=== PATIENT | female | born 1950 | race Caucasian/White ===

== ENCOUNTER → 2018-05-28 | Outpatient (REF) | payer SELFPAY ==
[2018-05-28 14:04] LABS: PLATELET COUNT, AUTOMATED 379 10^3/uL (150-450)
[2018-05-28 14:13] LABS: INR 1.01; PROTHROMBIN TIME 13.4 SECONDS (12.1-14.4)
[2018-05-28 14:14] LABS: PARTIAL THROMBOPLASTIN TIME 31.4 SECONDS (25.4-37.6)
== END ==
LOC: M LABDRAW1 13:52
DX: Z01.812 Encounter for preprocedural laboratory examination (principal)

== ENCOUNTER → 2018-11-18 | Outpatient (CLI) | payer MEDICARE ==
[~2018-11-18] MED LIST: ACET-683 PO; ALLO10TA PO; BUDE180INH INH; CORE80CA PO; CYMB60CA3 PO; DICY1CAP8 PO; DICY20TA PO; DULO-34 PO; ENAL5TAB PO; FISH1CAP23 PO; FLUT50SP21; GABA-845 PO; INSUDET SC; INSUH10VL SC; INVO300T PO; KLOR20TA42 PO; LIAL1.2T PO; LIPI20TA PO; NEXI40GR PO; ONDA8TAB8 PO; OS-CTAB3 PO; PREG25CA PO; PREG50CA PO; REST0.05 OD; ROPI0.5T PO; SLOWTAB2 PO; SOMA350T PO; SPIR-10 PO; TIZA4CAP6 PO; TORS10TA3 PO; TORS20TA2 PO; TRAM50TA2 PO; VASO5TAB11 PO; VENTAER INH; ZYLO300T6 PO
[2018-11-18 11:11] LABS: HEMATOCRIT 37.8 % (36.0-47.0); HEMOGLOBIN 12.2 g/dl (12.0-15.5); MEAN CORPUSCULAR HEMOGLOBIN 28.1 pg (27.0-33.0); MEAN CORPUSCULAR HGB CONC 32.3 g/dl (32.0-36.5); MEAN CORPUSCULAR VOLUME 87.1 fl (80.0-96.0); PLATELET COUNT, AUTOMATED 315 10^3/uL (150-450); RED BLOOD COUNT 4.34 10^6/uL (4.00-5.40); WHITE BLOOD COUNT 9.4 10^3/uL (4.0-10.0)
[2018-11-18 11:25] LABS: INR 1.1; PROTHROMBIN TIME 14.3 SECONDS (12.1-14.4)
[2018-11-18 11:31] LABS: ERYTHROCYTE SEDIMENTATION RATE 69 mm/hr (0-30)
[2018-11-18 11:33] LABS: ALT/SGPT 21 U/L (12-78); BILIRUBIN,TOTAL 0.5 MG/DL (0.2-1.0); BLOOD UREA NITROGEN 17 MG/DL (7-18); CALCIUM LEVEL 8.6 MG/DL (8.8-10.2); CARBON DIOXIDE LEVEL 27 MEQ/L (21-32); CHLORIDE LEVEL 100 MEQ/L (98-107); CREATININE FOR GFR 0.96 MG/DL (0.55-1.30); GLOMERULAR FILTRATION RATE > 60.0 (>45); GLUCOSE, FASTING 146 MG/DL (70-100); POTASSIUM SERUM 4.2 MEQ/L (3.5-5.1); SODIUM LEVEL 133 MEQ/L (136-145); TOTAL PROTEIN 7.1 GM/DL (6.4-8.2)
--- NOTE | 2018-11-18 14:13 | REP ---
REASON: Preoperative testing. There are no priors for comparison. There is a dual-chamber bipolar pacemaker device, the leads of which appear contiguous and appropriate. The lungs are clear and the heart is not enlarged. The pleural angles are sharp. There is a kyphotic deformity involving the lower thoracic level difficult to evaluate on this plain film examination of the chest. IMPRESSION: No acute cardiopulmonary disease, however, findings as described above. Electronically Signed by Tomás Garcia DO 11/18/2018 03:41 P
--- NOTE | 2018-11-19 00:29 | ECGEPIP ---
Stationary ECG Study [facility] Test Date: 2018-11-18 Pat Name: HORACIO MCDOWELL Department: Room: - Gender: F Supervisor [place]: : 1950 Requested By: Dung Inman @ [facility] Order Number: [id number] Reading MD: Vladislav Du Measurements Intervals [place] Rate: 84 P: 67 AK: 220 QRS: 5 QRSD: 90 T: 45 QT: 350 QTc: 414 Interpretive Statements SINUS RHYTHM WITH FIRST DEGREE AV BLOCK LOW QRS VOLTAGE IN PRECORDIAL LEADS ARTIFACT NOTED ON THE BASELINE NO PRIOR TRACING Electronically Signed On 11-19-2018 0:28:48 EDT by Vladislav Du
== END ==
LOC: M LAB 10:15
PROVIDERS: ATTEND Orthopaedic Surgery
DX: Z01.812 Encounter for preprocedural laboratory examination (principal); M16.11 Unilateral primary osteoarthritis, right hip; I44.0 Atrioventricular block, first degree; Z95.0 Presence of cardiac pacemaker

== ENCOUNTER 2018-12-05 07:00 | Inpatient (IN) | payer MEDICARE ==
--- NOTE | 2018-12-01 09:55 | HPE ---
DATE OF ADMISSION: 12/05/2018 ATTENDING PHYSICIAN: Dr. Dung Inman CHIEF COMPLAINT: Right hip pain and stiffness. HISTORY: This is a pleasant 68-year-old female patient with progressively worsening right hip pain and stiffness that has failed to improve with conservative management. She has pain with weightbearing activities that affect her activities of daily living. She has elected for surgery for her continued symptoms and has consented for right total hip arthroplasty by Dr. Inman ALLERGIES: - CODEINE DERIVATIVES - MELOXICAM - METFORMIN - NEURONTIN - PANTOPRAZOLE - PHENOBARBITAL - PRILOSEC - SULFA - TIZANIDINE CURRENT MEDICATIONS: - allopurinol 300 mg one by mouth daily - aspirin 81 mg one by mouth daily - atorvastatin 40 mg one by mouth daily - propranolol 12.5 mg two by mouth twice a day - dicyclomine 10 mg two by mouth as needed - Vasotec 2.5 mg one by mouth daily - Nexium 40 mg one by mouth daily - fluticasone 58 mcg as needed - Lyrica 50 mg two by mouth twice a day - NovoLog sliding scale - Invokana 300 mg one by mouth daily - potassium 20 mg one by mouth daily - Zofran 4 mg as needed - Pulmicort 180 mcg - Restasis 1 drop per eye twice a day - ropinirole 1 mg one by mouth in the morning and two by mouth at bedtime - spironolactone 25 mg one by mouth daily - torsemide 20 mg one by mouth daily - tramadol 50 mg as needed - Ventolin inhaler 2 puffs as needed PAST MEDICAL HISTORY: 1. Heart failure. 2. Type 2 diabetes. 3. Asthma. 4. Osteoarthritis. 5. Spinal stenosis. 6. Fibromyalgia. 7. Gastroesophageal reflux disease. 8. Hiatal hernia. 9. Rhinitis. 10. Sleep apnea. 11. Colitis and irritable bowel syndrome. 12. Gouty arthritis. PAST SURGICAL HISTORY: 1. Appendectomy. 2. Hysterectomy. 3. Pacemaker/defibrillator. 4. Left total knee arthroplasty. 5. Carpal tunnel release. 6. Bilateral abdominal hernia repair. 7. Cataract surgery. FAMILY HISTORY: Father and mother , both congestive heart failure (CHF) and hypertension. SOCIAL HISTORY: Patient is a nonsmoker and does not use alcohol. REVIEW OF SYSTEMS: Denies fever, chills, chest pain, shortness of breath, nausea, vomiting, diarrhea. Reports pain and stiffness in the right hip. PHYSICAL EXAMINATION: Height 5 feet 2-1/2 inches, weight 205.8 pounds, temperature 98.2, blood pressure 112/62, pulse 62, and respirations 17. She is a normocephalic, atraumatic female who is well-nourished, well-developed. Neck is supple and nontender with no lymphadenopathy or jugular venous distention (JVD). S1 and S2 auscultated with no murmurs, rubs or gallops. Lungs were clear to auscultation bilaterally with no wheezes, rales or rhonchi. Abdomen: Soft, nontender. The right hip shows overlying skin which is intact with no erythema, ecchymosis or rashes. She has discomfort with range of motion. The right lower extremity is well perfused and neurovascular status is intact. Chest x-ray with no acute cardiopulmonary disease. EKG is sinus rhythm with first-degree AV block. LABORATORY DATA: White count 9.4, red count 4.34, hemoglobin 12.2, hematocrit 37.8, ESR 69, PT 14.3, INR 1.1, BUN 17, creatinine 0.96. PREOPERATIVE MEDICAL OPTIMIZATION: Completed by Dr. Ruano and reviewed today on chart. IMPRESSION: Symptomatic right hip osteoarthritis. PLAN: Consented for right total hip arthroplasty with Dr. Inman.
[~2018-12-05] VITALS: Ht 160 cm; Wt 95.3 kg
[2018-12-05] VITALS (8 sets, daily range): BP systolic 120–135; BP diastolic 63–73; O2SAT 96
[~2018-12-05 07:00] MED LIST changes: +LIDOCAINE 1% MDV 20ML VIAL SQ PRN; +LR 1,000 ML IV ONE
[2018-12-05] MEDS ORDERED: ECOT81TA5 PO (08:24)
[2018-12-05] MEDS ORDERED: PROPOFOL 200 MG/20 ML VIAL As Ordered ONE ×2 (08:45→08:46)
[2018-12-05] MEDS ORDERED: dexameTHASONE 4 MG/ML 1ML VIAL (J1100) As Ordered ONE (08:46)
[2018-12-05] MEDS ORDERED: LIDOCAINE 2% INJ 100 MG/5 ML SDV (FOR ANES.) As Ordered ONE (08:46)
[2018-12-05] MEDS ORDERED: fentaNYL 100 MCG/2 ML INJECTION (J3010) As Ordered ONE (08:46)
[2018-12-05] MEDS ORDERED: ONDANSETRON 4MG/2ML VIAL (J2405) As Ordered ONE (08:46)
[2018-12-05] MEDS ORDERED: MIDAZOLAM INJ 2 MG/2 ML VIAL (J2250) As Ordered ONE (08:47)
[2018-12-05] MEDS ORDERED: CALCIUM CHLORIDE 10% 1 GM/10 ML SYR As Ordered ONE (08:54)
[2018-12-05] MEDS: ALLOPURINOL 300 MG TAB PO SCH (09:00)
[2018-12-05] MEDS ORDERED: TRANEXAMIC ACID 100 MG/ML 10ML VIAL As Ordered ONE (09:38)
[2018-12-05] MEDS ORDERED: ceFAZolin 1GM INJ (J0690 PER 500MG) As Ordered ONE (09:39)
[2018-12-05] MEDS ORDERED: BUPIVACAINE LIPOSOME/PF 1.3% 20ML VIAL (13.3MG/ML)(EXPAREL)(C9290 PER1MG) As Ordered ONE (09:39)
[2018-12-05] MEDS ORDERED: EPINEPHrine INJ 1 MG/ML 1ML AMP As Ordered ONE (09:39)
--- NOTE | 2018-12-05 09:56 | IPN ---
DATE: 12/05/2018 The patient is seen and examined. She wished to go ahead with a right total hip arthroplasty. She does have significant obesity, which would make this more challenging. She understands that and riskier as well. She had a preop medical clearance. She wished to have a right total hip arthroplasty, and she is aware of the risks of bleeding, infection, damage to nerves, vessels, persistent pain, wear loosening, dislocation, leg length inequality, blood clots, medical problems, among others.
[2018-12-05] MEDS ORDERED: PHENYLephrine HCL 500 MCG/5 ML (100MCG/ML) SYRINGE (J2370) As Ordered ONE (10:57)
[2018-12-05] MEDS ORDERED: ePHEDrine SULFATE 25 MG/5 ML(5MG/ML) SYRINGE As Ordered ONE (10:57)
[2018-12-05] MEDS ORDERED: fentaNYL 100 MCG/2 ML INJECTION (J3010) IV PRN (12:30)
[2018-12-05] MEDS ORDERED: FLEET ENEMA PR PRN (12:30)
[2018-12-05] MEDS ORDERED: LR 1,000 ML IV SCH ×2 (12:30)
[2018-12-05] MEDS ORDERED: ACETAMINOPHEN TAB 650MG DOSE (2X325MG) PO PRN (12:30)
[2018-12-05] MEDS ORDERED: MORPHINE 4 MG/ML 1ML VIAL/SYRINGE (J2270) IV PRN (12:30)
[2018-12-05] MEDS ORDERED: MEPERIDINE INJ 25 MG/ML VIAL (J2175) IV PRN (12:30)
[2018-12-05] MEDS ORDERED: METOCLOPRAMIDE INJ 10MG/2ML VIAL (J2765) IV PRN (12:30)
[2018-12-05] MEDS ORDERED: ONDANSETRON 4MG/2ML VIAL (J2405) IV PRN (12:30)
[2018-12-05] MEDS ORDERED: PERCOCET 5MG/325MG TAB PO PRN (12:30)
--- NOTE | 2018-12-05 12:58 | REP ---
Clinical: Status post arthroplasty. Technique: Portable AP and cross-table lateral views. Findings: The patient is status post right hip replacement with normal positioning and appearance to the femoral and acetabular components. Overlying postsurgical changes appreciated. Impression: Satisfactory right hip replacement radiographs. Electronically Signed by Chidi Marc MD 12/05/2018 12:48 P
--- NOTE | 2018-12-05 14:18 | CR.PDOC ---
General Date of Consultation: December 05, 2018 Referring Provider: Bernardino Inman MD Consultation CHIEF COMPLAINT: R. hip pain HISTORY OF PRESENT ILLNESS: Patient is a 68 female with past medical history of severe osteoarthritis, diabetes mellitus, Asthma, cardiomyopathy status post pacemaker/defibrillator placement now has been turned off, spinal stenosis, fibromyalgia, GERD, IBS presented for right total hip arthroplasty due to worsening hip pain and stiffness that had failed on conservative treatment. She has had numerous surgeries in the past including total knee due to arthritis. She reports feeling fine post op except that she is now starting to feeling the pain in her R. hip, otherwise denies any other complaints. PAST MEDICAL HISTORY: Refer to HPI PAST SURGICAL HISTORY: Appendectomy Hysterectomy Pacemaker/defibrillator Left total knee arthroplasty Bilateral abdominal hernia repair Cataract surgery Right shoulder artery SOCIAL HISTORY: Denies tobacco, alcohol or illicit drug use. FAMILY HISTORY: Both parents with CHF and HTN ALLERGIES: Please see below. REVIEW OF SYSTEMS: 10 point review of system negative except as stated in HPI HOME MEDICATIONS: Please see below. PHYSICAL EXAMINATION: General: No acute distress, Alert Eyes: Normal sclera, EOMI, RAYMON HENT: Atraumatic, neck supple, moist mucous membranes Cardiovascular: Normal rate, normal rhythm. No murmurs appreciated. Pulmonary: Clear to auscultation b/l, no wheezing GI: Soft, nontender, nondistended MSK: R. hip tender to palpation, restricted ROM due to pain. Overlying bandage clean and dry. Skin: Warm and dry Neuro: CN grossly intact. No focal deficits. Strengths equal b/l. Psych: oriented x 3 LABORATORY DATA: See below. IMAGING: R. Hip XR MICROBIOLOGY: Please see below. ASSESSMENT AND PLAN: 1. R. hip pain s/p R. total hip arthroplasty - Performed 12/05/[address] Inman. - Pain management for Ortho. - Monitor wound/wound care. 2. hx CM w/ pacemaker - history of CM EF15% with pacemaker but had since improved now EF normal. - c/w home dose diuresis. - No evidence of fluid overload. 3. DM - Accuchecks, ISS. - resume home dose Levemir 35 units QHS, used to take 50 units. - Titrate as needed while inpatient. 4. Fibromyalgia/Spinal stenosis. - Resume home medications. 5. Asthma - Not in exacerbation. - Nebs PRN. monitor oxygen saturation. 6. GERD - Resume home meds. DVT ppx: Xarelto Vital Signs/I&O Vital Signs Date Time Temp Pulse Resp B/P (MAP) Pulse Ox O2 Delivery O2 Flow Rate FiO2 12/05/18 13:50 96.4 81 17 135/69 (91) 97 12/05/18 12:25 2 Laboratory Data Labs 24H Laboratory Tests 2 12/05/18 12:23: Bedside Glucose (Misc Panel) 117H CBC/BMP Laboratory Tests 12/05/18 07:21 Allergies Coded Allergies: [place] Extract (Verified Allergy, Unknown, 12/05/18) Sulfa (Sulfonamide Antibiotics) (Verified Allergy, Unknown, SWEATING, 11/06/18) TAPE (Verified Allergy, Unknown, PLASTIC TAPE, 08/07/05) codeine (Verified Allergy, Unknown, HEADACHE, 11/06/18) gabapentin (Verified Allergy, Unknown, 12/05/18) meloxicam (Verified Allergy, Unknown, HEART ARRHTYMIA, 11/06/18) mesalamine (Verified Allergy, Unknown, HEART PALPITATIONS, 11/06/18) metformin (Verified Allergy, Unknown, UNKNOWN, 11/06/18) omeprazole (Verified Allergy, Unknown, 12/05/18) pantoprazole (Verified Allergy, Unknown, 12/05/18) ragweed pollen (Verified Allergy, Unknown, 12/05/18) tizanidine (Verified Allergy, Unknown, 12/05/18) Home Medications Scheduled Acetaminophen (Acetaminophen) 500 Mg Tablet, 500 MG PO BID, (Reported) Allopurinol (Zyloprim) 300 Mg Tablet, 300 MG PO DAILY, (Reported) Aspirin (Ecotrin) 81 Mg Tablet.dr, 81 MG PO DAILY for pain for 30 Days, #30 (Reported) Atorvastatin Calcium (Lipitor) 20 Mg Tablet, 40 MG PO DAILY, (Reported) Budesonide (Pulmicort Flexhaler) 180 Mcg Aer.pow.ba, 2 PUFF INH BID for 30 Days, #1 (Reported) Calcium Carbonate/Vitamin D3 (Os-Zach 500-Vit D3 200 Caplet) 1 Each Tablet, 1 TAB PO BID, (Reported) Canagliflozin (Invokana) 300 Mg Tablet, 300 MG PO DAILY, (Reported) Carvedilol Phosphate (Coreg Cr) 80 Mg Cpmp.24hr, 80 MG PO DAILY, (Reported) Cyclosporine (Restasis) 0.05% Droperette, 1 DROP OD BID for 30 Days, #60 (Re ported) Duloxetine Hcl (Cymbalta) 60 Mg Capsule.dr, 60 MG PO DAILY, (Reported) Enalapril Maleate (Enalapril Maleate) 5 Mg Tablet, 2.5 MG PO DAILY, (Reported) Esomeprazole Magnesium (Nexium) 40 Mg Suspdr.pkt, 40 MG PO DAILY, (Reported) Fluticasone Propionate (Fluticasone Propionate) 15.8 Ml [place].susp, 2 SPRAYS NA DAILY, (Reported) Insulin Detemir (Levemir) 100 Unit/1 Ml Vial, 50 UNITS SC QHS, (Reported) Insulin Human Lispro (Novolog) 100 Unit/1 Ml Vial, 1 UNITS SC AC, (Reported) Magnesium Chloride (Slow-Mag) 71.5 Mg Tablet.dr, 2 TAB PO DAILY, (Reported) [place]-3/Dha/Epa/Fish Oil (Fish Oil 1,360 mg Softgel) 1 Each Capsule, 1 CAP PO DAILY, (Reported) Potassium Chloride (Klor-Con M20) 20 Meq Tab.er.prt, 20 MEQ PO DAILY, (Reported) Ropinirole HCl (Ropinirole HCl) 0.5 Mg Tablet, 0.5 MG PO QPM, (Reported) Spironolactone (Spironolactone) 25 Mg Tablet, 25 MG PO DAILY, (Reported) Torsemide (Torsemide) 10 Mg Tablet, 10 MG PO DAILY, (Reported) Scheduled PRN Albuterol Sulfate (Ventolin Hfa) 18 Gm Hfa.aer.ad, 2 PUFF INH Q4-6HP PRN for wheezing for 30 Days, #1 (Reported) Dicyclomine HCl (Dicyclomine HCl) 20 Mg Tablet, 20 MG PO QIDP PRN for BOWEL CA RE, (Reported) Ondansetron (Ondansetron Odt) 8 Mg Tab.rapdis, 8 MG PO Q8HP PRN for NAUSEA, (Reported) Pregabalin (Lyrica) 50 Mg Capsule, 50 MG PO QIDP PRN for PAIN, (Reported) Tizanidine HCl (Tizanidine HCl) 4 Mg Capsule, 4 MG PO TIDP PRN for MUSCLE SPASMS, (Reported) Tramadol HCl (Tramadol HCl) 50 Mg Tablet, 50 MG PO Q4-6HP PRN for PAIN, (Reported) JM AMEZCUA MD December 05, 2018 14:18
[2018-12-05] MEDS ORDERED: IPRATROPIUM 0.5MG/ALBUTEROL 2.5MG INH SOL UD 3ML (DUONEB)(J7620) NEB PRN (14:30)
[2018-12-05] MEDS ORDERED: DICYCLOMINE 10 MG CAP PO PRN (14:30)
[2018-12-05] MEDS ORDERED: GLUCOSE 4 GM CHEW TABLET PO PRN (14:30)
[2018-12-05] MEDS ORDERED: GLUCAGON FOR INJ 1 MG VIAL (J1610) SC PRN (14:30)
[2018-12-05] MEDS ORDERED: DEXTROSE 50% 50 ML SYRINGE IV PRN (14:30)
[2018-12-05] MEDS: PERCOCET 5MG/325MG TAB PO PRN ×2 (14:37→19:48)
[2018-12-05] MEDS: MORPHINE 4 MG/ML 1ML VIAL/SYRINGE (J2270) IV PRN ×2 (15:47→20:49)
[2018-12-05] MEDS: TORSEMIDE 10 MG TABLET PO SCH (16:21)
[2018-12-05] MEDS: SPIRONOLACTONE 25 MG TAB PO SCH (16:21)
[2018-12-05] MEDS: PREGABALIN 50 MG CAP (LYRICA) PO PRN ×2 (16:21→23:01)
--- NOTE | 2018-12-05 17:03 | RO ---
DATE OF PROCEDURE: 12/05/2018 PREOPERATIVE DIAGNOSIS: Right hip osteoarthritis. POSTOPERATIVE DIAGNOSIS: Right hip osteoarthritis. OPERATIVE PROCEDURE: Right total hip arthroplasty using a [place] size 5 high offset, size 50 acetabular component with a 32 +5 neck. SURGEON: Dung Inman MD INTERNATIONAL TRADE ANALYST: Katarzyna Arias ANESTHESIA: Spinal ESTIMATED BLOOD LOSS: 200 mL COMPLICATIONS: None. INDICATIONS: This is a 68-year woman with morbid obesity who wished to proceed with a hip replacement. She understood that she was at increased risk due to her morbid obesity. Preop clearance was obtained. DESCRIPTION OF PROCEDURE: The patient was taken to operating room and placed in supine position after spinal anesthesia was induced. The right hip was then prepped and draped in the usual sterile fashion. Time-out was performed. A longitudinal incision was made over the lateral aspect of the hip. She had very copious subcutaneous tissue so it took awhile to get down to the level of the greater trochanter and sized the fascia sinan and exposed the hip. It looked like that she had evulsed much of her abductors off of her greater trochanter. I then exposed the neck and we dislocated the hip. I then used a canal initiating reamer followed by the canal finding reamer, lateralizing reamer and sequentially reamed up to a size 5, which had good bony purchase. I did the neck cut at about three-quarters of a fingerbreadth up from the lesser trochanter. The head was removed; the acetabulum was then prepared. Soft tissues removed from around the acetabulum. I then reamed up to a size 49 and this had good bleeding bone and good concentric reaming. I selected a 50 acetabular component and impacted this in place. Excellent fit and position were noted. I irrigated copiously, we then impacted in the acetabular liner. I selected a 32 x 50. We made sure this was well seated. The femoral side was then prepared. We sequentially broached up to a size 5, which had good purchase and good fit. There was no calcar planing necessary. I then trialed the various different neck and offsets and decided on the high offset +5 which had excellent stability, minimal shuck in full extension, excellent stability in extension external rotation and flexion internal rotation. Soft tissue tension was appropriate. I then removed the trial components, irrigated copiously impacted the actual size 5 high offset stem in and made sure it was well seated. I then placed the +5 32 ball over a dry taper, impacted it in place. We then reduced the hip and put the hip through a range of motion. I was very pleased with position of the components and stability. I did have to remove some osteophyte off the anterior aspect of the acetabulum. I irrigated copiously, placed TXA solution deep in the wound and then prepared the minimus followed by the abductor which was several stitches being placed through the bone, and irrigated at each level. Then closed the fascia sinan with #1 Vicryl suture in a running Stratafix suture in both directions. I then irrigated the subcu. We had to close this in two layers due to the obesity and then closed the skin with jerome. Sterile dressing was applied and she was taken to recovery room in stable condition. There were no known complications. The plan will be routine postop. The assistant toddler teacher was instrumental in holding retractors and assisting and reducing and dislocating the hip and assisting in wound closure. This is also coded as an unusually difficult procedure due to the patient's morbid obesity and significantly elevated BMI which added significant time and difficulty to the case. It made the exposure much more difficult and the surgery overall was significantly more challenging.
[2018-12-05] MEDS: HumaLOG INSULIN (NovoLOG) PER UNIT SC SCH ×2 (18:50→20:48)
[2018-12-05] MEDS: LEVEMIR (INSULIN DETEMIR) 1 UNITS/0.01ML SC SCH (20:48)
[2018-12-05] MEDS: ONDANSETRON 4MG/2ML VIAL (J2405) IV PRN (20:49)
[2018-12-05] MEDS: CARVedilol 12.5 MG TAB PO SCH (20:50)
[2018-12-05] MEDS: ENALAPRIL MALEATE 5 MG TAB PO SCH (20:50)
[2018-12-05] MEDS: rOPINIRole 0.25 MG TAB(REQUIP) PO SCH (20:50)
[2018-12-05] MEDS: ATORVASTATIN 20 MG TAB PO SCH (20:51)
[2018-12-05] MEDS: DULoxetine 30 MG CAP (CYMBALTA) PO SCH (20:51)
[2018-12-05] MEDS ORDERED: PERCOCET 5MG/325MG TAB PO ONE (22:15)
[2018-12-06] MEDS: MORPHINE 4 MG/ML 1ML VIAL/SYRINGE (J2270) IV PRN (01:39)
[2018-12-06 02:00] VITALS: BP 110/61
[2018-12-06] MEDS: PERCOCET 5MG/325MG TAB PO PRN ×5 (03:56→21:55)
[2018-12-06] MEDS: PREGABALIN 50 MG CAP (LYRICA) PO PRN ×3 (05:32→17:18)
[2018-12-06 06:00] VITALS: BP 107/54
[2018-12-06 06:31] LABS: HEMOGLOBIN 10.1 g/dl (12.0-15.5); MEAN CORPUSCULAR HEMOGLOBIN 27.6 pg (27.0-33.0); MEAN CORPUSCULAR HGB CONC 31.6 g/dl (32.0-36.5); MEAN CORPUSCULAR VOLUME 87.4 fl (80.0-96.0); PLATELET COUNT, AUTOMATED 265 10^3/uL (150-450); RED BLOOD COUNT 3.66 10^6/uL (4.00-5.40); WHITE BLOOD COUNT 10.4 10^3/uL (4.0-10.0)
[2018-12-06 08:22] LABS: BLOOD UREA NITROGEN 15 MG/DL (7-18); CALCIUM LEVEL 8.8 MG/DL (8.8-10.2); CARBON DIOXIDE LEVEL 28 MEQ/L (21-32); CHLORIDE LEVEL 101 MEQ/L (98-107); CREATININE FOR GFR 0.97 MG/DL (0.55-1.30); GLOMERULAR FILTRATION RATE > 60.0 (>45); GLUCOSE, FASTING 174 MG/DL (70-100); POTASSIUM SERUM 4.1 MEQ/L (3.5-5.1); SODIUM LEVEL 136 MEQ/L (136-145)
[2018-12-06] MEDS: MIRALAX *UNIT DOSE* 17GM PACKET PO SCH (08:49)
[2018-12-06] MEDS: CARVedilol 12.5 MG TAB PO SCH ×2 (08:50→21:43)
[2018-12-06] MEDS: SENOKOT S TAB PO SCH ×2 (08:50→21:43)
[2018-12-06] MEDS: SPIRONOLACTONE 25 MG TAB PO SCH (08:50)
[2018-12-06] MEDS: HumaLOG INSULIN (NovoLOG) PER UNIT SC SCH ×4 (08:50→21:00)
[2018-12-06] MEDS: ALLOPURINOL 300 MG TAB PO SCH (08:50)
[2018-12-06] MEDS: MOM 30ML SUSPENSION UDC PO SCH (08:50)
[2018-12-06] MEDS: TORSEMIDE 10 MG TABLET PO SCH (08:51)
[2018-12-06] MEDS: CYCLOBENZAPRINE 10 MG TAB PO SCH ×3 (08:52→21:43)
[2018-12-06 10:00] VITALS: BP 136/56
[2018-12-06] MEDS ORDERED: MORPHINE 15 MG SA TAB PO ONE (13:00)
[2018-12-06 14:00] VITALS: BP_SYST 100; BP_SYST 86; BP_DIAS 56
[2018-12-06] MEDS: ONDANSETRON 4MG/2ML VIAL (J2405) IV PRN (14:34)
[2018-12-06] MEDS: RIVAROXABAN 10 MG TAB (XARELTO) PO SCH (17:18)
--- NOTE | 2018-12-06 17:32 | IPNPDOC ---
Date Seen The patient was seen on 12/06/18. Progress Note SUBJECTIVE: Patient reports increasing pain in her R. hip but otherwise has no complaints. No events reported overnight. Afebrile. OBJECTIVE PHYSICAL EXAMINATION: General: No acute distress, Alert Eyes: Normal sclera, EOMI, RAYMON HENT: Atraumatic, neck supple, moist mucous membranes Cardiovascular: Normal rate, normal rhythm. No murmurs appreciated. Pulmonary: Clear to auscultation b/l, no wheezing GI: Soft, nontender, nondistended MSK: R. hip tender to palpation, restricted ROM due to pain. Overlying bandage clean and dry. Skin: Warm and dry Neuro: CN grossly intact. No focal deficits. Strengths equal b/l. Psych: oriented x 3 LABORATORY DATA, IMAGING STUDIES, MICROBIOLOGY: Please see below. ASSESSMENT AND PLAN: 1. R. hip pain s/p R. total hip arthroplasty - Performed 12/05/[address] Inman. - Pain management. - Monitor wound/wound care. 2. hx CM w/ pacemaker - history of CM EF15% with pacemaker but had since improved now EF normal. - c/w home dose diuresis. - No evidence of fluid overload. 3. DM - Accuchecks, ISS. - resume home dose Levemir 35 units QHS, used to take 50 units. - Titrate as needed while inpatient. 4. Fibromyalgia/Spinal stenosis. - Resume home medications. 5. Asthma - Not in exacerbation. - Nebs PRN. monitor oxygen saturation. 6. GERD - Resume home meds. DVT ppx: Xarelto VS, I&O, 24H, [place] Vital Signs/I&O Vital Signs Date Time Temp Pulse Resp B/P (MAP) Pulse Ox O2 Delivery O2 Flow Rate FiO2 12/06/18 17:19 18 12/06/18 14:00 98.8 97 100/56 (71) 90 12/05/18 23:00 Room Air 12/05/18 12:25 2 I&O- Last 24 Hours up to 6 AM 12/06/18 06:00 Intake Total 4450 ml Output Total 200 ml Balance 4250 ml Laboratory Data 24H LABS Laboratory Tests 2 12/05/18 17:53: Bedside Glucose (Misc Panel) 200H 12/05/18 20:24: Bedside Glucose (Misc Panel) 243H 12/06/18 05:53: Anion Gap 7L, Glomerular Filtration Rate > 60.0, Blood Urea Nitrogen 15, Creatinine 0.97, Sodium Level 136, Potassium Level 4.1, Chloride Level 101, Carbon Dioxide Level 28, Calcium Level 8.8 12/06/18 05:57: Nucleated Red Blood Cells % (auto) 0.0 12/06/18 06:09: Bedside Glucose (Misc Panel) 169H 12/06/18 11:36: Bedside Glucose (Misc Panel) 168H 12/06/18 16:15: Bedside Glucose (Misc Panel) 254H CBC/BMP Laboratory Tests 12/06/18 05:53 Calcium Level 8.8 12/06/18 05:57 Red Blood Count 3.66 L, Mean Corpuscular Volume 87.4, Mean Corpuscular Hemoglobin 27.6, Mean Corpuscular Hemoglobin Concent 31.6 L, Red Cell Distribution Width 14.9 H JM AMEZCUA MD December 06, 2018 17:32
[2018-12-06] MEDS: LEVEMIR (INSULIN DETEMIR) 1 UNITS/0.01ML SC SCH (21:42)
[2018-12-06] MEDS: ENALAPRIL MALEATE 5 MG TAB PO SCH (21:43)
[2018-12-06] MEDS: ATORVASTATIN 20 MG TAB PO SCH (21:43)
[2018-12-06] MEDS: rOPINIRole 0.25 MG TAB(REQUIP) PO SCH (21:43)
[2018-12-06] MEDS: DULoxetine 30 MG CAP (CYMBALTA) PO SCH (21:44)
[2018-12-06 22:00] VITALS: BP 127/59
[2018-12-07 00:56] VITALS: O2SAT 92
[2018-12-07] MEDS: PERCOCET 5MG/325MG TAB PO PRN ×4 (02:05→21:06)
[2018-12-07 06:00] VITALS: BP 112/55
[2018-12-07] MEDS: CYCLOBENZAPRINE 10 MG TAB PO SCH ×3 (06:08→22:49)
[2018-12-07 06:57] LABS: HEMATOCRIT 29.2 % (36.0-47.0); HEMOGLOBIN 9.4 g/dl (12.0-15.5); MEAN CORPUSCULAR HGB CONC 32.2 g/dl (32.0-36.5); MEAN CORPUSCULAR VOLUME 90.1 fl (80.0-96.0); PLATELET COUNT, AUTOMATED 227 10^3/uL (150-450); RED BLOOD COUNT 3.24 10^6/uL (4.00-5.40); WHITE BLOOD COUNT 12.2 10^3/uL (4.0-10.0)
[2018-12-07 07:17] LABS: CALCIUM LEVEL 8.4 MG/DL (8.8-10.2); CREATININE FOR GFR 1.24 MG/DL (0.55-1.30); GLOMERULAR FILTRATION RATE 45.9 (>45); POTASSIUM SERUM 3.6 MEQ/L (3.5-5.1)
[2018-12-07] MEDS: TORSEMIDE 10 MG TABLET PO SCH (08:06)
[2018-12-07] MEDS: SENOKOT S TAB PO SCH ×2 (08:06→21:05)
[2018-12-07] MEDS: SPIRONOLACTONE 25 MG TAB PO SCH (08:06)
[2018-12-07] MEDS: HumaLOG INSULIN (NovoLOG) PER UNIT SC SCH ×4 (08:06→21:00)
[2018-12-07] MEDS: CARVedilol 12.5 MG TAB PO SCH ×2 (08:07→21:05)
[2018-12-07] MEDS: MIRALAX *UNIT DOSE* 17GM PACKET PO SCH (08:07)
[2018-12-07] MEDS: MOM 30ML SUSPENSION UDC PO SCH (08:07)
[2018-12-07] MEDS: ALLOPURINOL 300 MG TAB PO SCH (08:10)
--- NOTE | 2018-12-07 11:44 | IPNPDOC ---
Date Seen The patient was seen on 12/07/18. Progress Note SUBJECTIVE: Patient reports being exhausted from PT in AM but otherwise feels well. R. hip discomfort improving daily. No events reported overnight. Afebrile. OBJECTIVE PHYSICAL EXAMINATION: General: No acute distress, Alert Eyes: Normal sclera, EOMI, RAYMON HENT: Atraumatic, neck supple, moist mucous membranes Cardiovascular: Normal rate, normal rhythm. No murmurs appreciated. Pulmonary: Clear to auscultation b/l, no wheezing GI: Soft, nontender, nondistended MSK: R. hip tender to palpation, restricted ROM due to pain. Overlying bandage clean and dry. Skin: Warm and dry Neuro: CN grossly intact. No focal deficits. Strengths equal b/l. Psych: oriented x 3 LABORATORY DATA, IMAGING STUDIES, MICROBIOLOGY: Please see below. ASSESSMENT AND PLAN: 1. R. hip pain s/p R. total hip arthroplasty - Performed 12/05/[address] Inman. - Pain management. - Monitor wound/wound care. 2. hx CM w/ pacemaker - history of CM EF15% with pacemaker but had since improved now EF normal. - c/w home dose diuresis. - No evidence of fluid overload. 3. DM - Accuchecks, ISS. - resume home dose Levemir 35 units QHS, used to take 50 units. - Titrate as needed while inpatient. 4. Fibromyalgia/Spinal stenosis. - Resume home medications. 5. Asthma - Not in exacerbation. - Nebs PRN. monitor oxygen saturation. 6. GERD - Resume home meds. DVT ppx: Xarelto VS, I&O, 24H, [place] Vital Signs/I&O Vital Signs Date Time Temp Pulse Resp B/P (MAP) Pulse Ox O2 Delivery O2 Flow Rate FiO2 12/07/18 08:07 95 112/55 12/07/18 06:40 18 12/07/18 06:00 96.2 96 12/07/18 00:56 Room Air 12/05/18 12:25 2 I&O- Last 24 Hours up to 6 AM 12/07/18 06:00 Intake Total 1820 ml Output Total 0 ml Balance 1820 ml Laboratory Data 24H LABS Laboratory Tests 2 12/06/18 16:15: Bedside Glucose (Misc Panel) 254H 12/06/18 21:20: Bedside Glucose (Misc Panel) 229H 12/07/18 06:38: Nucleated Red Blood Cells % (auto) 0.0, Anion Gap 5L, Glomerular Filtration Rate 45.9, Blood Urea Nitrogen 20H, Creatinine 1.24, Sodium Level 133L, Potassium Level 3.6, Chloride Level 99, Carbon Dioxide Level 29, Calcium Level 8.4L 12/07/18 10:40: Bedside Glucose (Misc Panel) 221H CBC/BMP Laboratory Tests 12/07/18 06:38 Red Blood Count 3.24 L, Mean Corpuscular Volume 90.1, Mean Corpuscular Hemoglobin 29.0, Mean Corpuscular Hemoglobin Concent 32.2, Red Cell Distribution Width 14.9 H, Calcium Level 8.4 L JM AMEZCUA MD December 07, 2018 11:44
[2018-12-07 14:00] VITALS: BP 86/56
[2018-12-07 14:39] VITALS: BP 90/60
[2018-12-07 15:30] VITALS: BP 92/54
[2018-12-07] MEDS: RIVAROXABAN 10 MG TAB (XARELTO) PO SCH (17:40)
[2018-12-07] MEDS: rOPINIRole 0.25 MG TAB(REQUIP) PO SCH (21:04)
[2018-12-07] MEDS: ENALAPRIL MALEATE 5 MG TAB PO SCH (21:04)
[2018-12-07] MEDS: ATORVASTATIN 20 MG TAB PO SCH (21:05)
[2018-12-07] MEDS: DULoxetine 30 MG CAP (CYMBALTA) PO SCH (21:05)
[2018-12-07] MEDS: LEVEMIR (INSULIN DETEMIR) 1 UNITS/0.01ML SC SCH (21:11)
[2018-12-07 22:00] VITALS: BP 116/64
[2018-12-08] MEDS: CYCLOBENZAPRINE 10 MG TAB PO SCH ×3 (05:53→22:13)
[2018-12-08 06:00] VITALS: BP 104/54
[2018-12-08 07:08] LABS: HEMOGLOBIN 9.2 g/dl (12.0-15.5); MEAN CORPUSCULAR HEMOGLOBIN 29.1 pg (27.0-33.0); MEAN CORPUSCULAR HGB CONC 32.9 g/dl (32.0-36.5); MEAN CORPUSCULAR VOLUME 88.6 fl (80.0-96.0); PLATELET COUNT, AUTOMATED 237 10^3/uL (150-450); RED BLOOD COUNT 3.16 10^6/uL (4.00-5.40); WHITE BLOOD COUNT 10.6 10^3/uL (4.0-10.0)
[2018-12-08 07:29] LABS: CREATININE FOR GFR 1.1 MG/DL (0.55-1.30); GLOMERULAR FILTRATION RATE 52.7 (>45); POTASSIUM SERUM 3.5 MEQ/L (3.5-5.1)
[2018-12-08] MEDS: PERCOCET 5MG/325MG TAB PO PRN ×3 (07:35→20:10)
[2018-12-08] MEDS: HumaLOG INSULIN (NovoLOG) PER UNIT SC SCH ×4 (07:36→20:30)
[2018-12-08] MEDS: TORSEMIDE 10 MG TABLET PO SCH (08:44)
[2018-12-08] MEDS: ALLOPURINOL 300 MG TAB PO SCH (08:44)
[2018-12-08] MEDS: CARVedilol 12.5 MG TAB PO SCH ×2 (08:45→20:10)
[2018-12-08] MEDS: MOM 30ML SUSPENSION UDC PO SCH (08:45)
[2018-12-08] MEDS: SENOKOT S TAB PO SCH ×2 (08:45→20:11)
[2018-12-08] MEDS: MIRALAX *UNIT DOSE* 17GM PACKET PO SCH (08:45)
[2018-12-08] MEDS: SPIRONOLACTONE 25 MG TAB PO SCH (08:45)
[2018-12-08] MEDS: ESOMEPRAZOLE 40 MG PO SCH (08:46)
--- NOTE | 2018-12-08 10:09 | IPNPDOC ---
Date Seen The patient was seen on 12/08/18. Progress Note SUBJECTIVE: Patient reports being exhausted from PT in AM but otherwise feels well. R. hip discomfort improving daily. No events reported overnight. Afebrile. OBJECTIVE PHYSICAL EXAMINATION: General: No acute distress, Alert Eyes: Normal sclera, EOMI, RAYMON HENT: Atraumatic, neck supple, moist mucous membranes Cardiovascular: Normal rate, normal rhythm. No murmurs appreciated. Pulmonary: Clear to auscultation b/l, no wheezing GI: Soft, nontender, nondistended MSK: R. hip tender to palpation, restricted ROM due to pain. Overlying bandage clean and dry. Skin: Warm and dry Neuro: CN grossly intact. No focal deficits. Strengths equal b/l. Psych: oriented x 3 LABORATORY DATA, IMAGING STUDIES, MICROBIOLOGY: Please see below. ASSESSMENT AND PLAN: 1. R. hip pain s/p R. total hip arthroplasty - Performed 12/05/[address] Inman. - Pain management. - Monitor wound/wound care. 2. hx CM w/ pacemaker - history of CM EF15% with pacemaker but had since improved now EF normal. - c/w home dose diuresis. - No evidence of fluid overload. - On low dose BB and ACEI. Had to reduced coreg from 25 mg BID to 12.5 mg BID. May need further reduction as she appear to run low with one episode/day into the 80-90s systolic briefly. 3. DM - Accuchecks, ISS. - resume home dose Levemir 35 units QHS, used to take 50 units. - Titrate as needed while inpatient. 4. Fibromyalgia/Spinal stenosis. - Resume home medications. 5. Asthma - Not in exacerbation. - Nebs PRN. monitor oxygen saturation. 6. GERD - Resume home meds. DVT ppx: Xarelto VS, I&O, 24H, [place] Vital Signs/I&O Vital Signs Date Time Temp Pulse Resp B/P (MAP) Pulse Ox O2 Delivery O2 Flow Rate FiO2 12/08/18 08:45 91 104/54 12/08/18 07:35 16 12/08/18 06:00 98.7 92 12/07/18 00:56 Room Air 12/05/18 12:25 2 I&O- Last 24 Hours up to 6 AM 12/08/18 06:00 Intake Total 1440 ml Output Total 400 ml Balance 1040 ml Laboratory Data 24H LABS Laboratory Tests 2 12/07/18 10:40: Bedside Glucose (Misc Panel) 221H 12/07/18 17:02: Bedside Glucose (Misc Panel) 175H 12/07/18 21:04: Bedside Glucose (Misc Panel) 155H 12/08/18 06:44: Nucleated Red Blood Cells % (auto) 0.0, Anion Gap 6L, Glomerular Filtration Rate 52.7, Blood Urea Nitrogen 23H, Creatinine 1.10, Sodium Level 133L, Potassium Level 3.5, Chloride Level 99, Carbon Dioxide Level 28, Calcium Level 8.0L CBC/BMP Laboratory Tests 12/08/18 06:44 Red Blood Count 3.16 L, Mean Corpuscular Volume 88.6, Mean Corpuscular Hemoglobin 29.1, Mean Corpuscular Hemoglobin Concent 32.9, Red Cell Distribution Width 14.8 H, Calcium Level 8.0 L JM AMEZCUA MD December 08, 2018 10:09
[2018-12-08 14:00] VITALS: BP 135/75
[2018-12-08] MEDS: RIVAROXABAN 10 MG TAB (XARELTO) PO SCH (17:28)
[2018-12-08] MEDS: LEVEMIR (INSULIN DETEMIR) 1 UNITS/0.01ML SC SCH (20:09)
[2018-12-08] MEDS: ATORVASTATIN 20 MG TAB PO SCH (20:10)
[2018-12-08] MEDS: DULoxetine 30 MG CAP (CYMBALTA) PO SCH (20:10)
[2018-12-08] MEDS: rOPINIRole 0.25 MG TAB(REQUIP) PO SCH (20:11)
[2018-12-08] MEDS: ENALAPRIL MALEATE 5 MG TAB PO SCH (20:11)
[2018-12-08] MEDS: PREGABALIN 50 MG CAP (LYRICA) PO PRN (20:15)
[2018-12-08 22:00] VITALS: BP 129/75
[2018-12-09] MEDS: PERCOCET 5MG/325MG TAB PO PRN ×3 (01:27→21:30)
[2018-12-09] MEDS: CYCLOBENZAPRINE 10 MG TAB PO SCH ×3 (05:32→22:33)
[2018-12-09 06:00] VITALS: BP 95/62
[2018-12-09 06:08] LABS: HEMATOCRIT 28.5 % (36.0-47.0); HEMOGLOBIN 9.4 g/dl (12.0-15.5); PLATELET COUNT, AUTOMATED 277 10^3/uL (150-450); RED BLOOD COUNT 3.24 10^6/uL (4.00-5.40); WHITE BLOOD COUNT 10.3 10^3/uL (4.0-10.0)
[2018-12-09 06:32] LABS: BLOOD UREA NITROGEN 18 MG/DL (7-18); CALCIUM LEVEL 8.7 MG/DL (8.8-10.2); CARBON DIOXIDE LEVEL 27 MEQ/L (21-32); CHLORIDE LEVEL 100 MEQ/L (98-107); CREATININE FOR GFR 0.93 MG/DL (0.55-1.30); GLOMERULAR FILTRATION RATE > 60.0 (>45); GLUCOSE, FASTING 174 MG/DL (70-100); POTASSIUM SERUM 3.4 MEQ/L (3.5-5.1); SODIUM LEVEL 136 MEQ/L (136-145)
[2018-12-09] MEDS ORDERED: XARE10TA PO (07:07)
[2018-12-09] MEDS ORDERED: PERC5TAB12 PO (07:07)
[2018-12-09] MEDS ORDERED: POTASSIUM CHLORIDE 10 MEQ SR TABLET PO ONE (07:15)
[2018-12-09] MEDS: SENOKOT S TAB PO SCH ×2 (07:53→21:29)
[2018-12-09] MEDS: TORSEMIDE 10 MG TABLET PO SCH (07:53)
[2018-12-09] MEDS: ALLOPURINOL 300 MG TAB PO SCH (07:53)
[2018-12-09] MEDS: HumaLOG INSULIN (NovoLOG) PER UNIT SC SCH ×4 (07:54→21:00)
[2018-12-09] MEDS: ESOMEPRAZOLE 40 MG PO SCH (07:54)
[2018-12-09] MEDS: SPIRONOLACTONE 25 MG TAB PO SCH (07:54)
[2018-12-09] MEDS: CARVedilol 12.5 MG TAB PO SCH (07:54)
[2018-12-09] MEDS: MOM 30ML SUSPENSION UDC PO SCH (07:55)
[2018-12-09] MEDS: MIRALAX *UNIT DOSE* 17GM PACKET PO SCH (07:55)
[2018-12-09 14:30] VITALS: BP 124/70
--- NOTE | 2018-12-09 15:37 | IPNPDOC ---
Date Seen The patient was seen on 12/09/18. Progress Note SUBJECTIVE: Patient reports pain from R. hip as well as a arthritic nodule below her R. knee that bothers her from time to time. Otherwise has been walking with PT well. BP still with low episodes. Coreg had been reduced from 25BID->12.5->6.25mg BID. OBJECTIVE PHYSICAL EXAMINATION: General: No acute distress, Alert Eyes: Normal sclera, EOMI, RAYMON HENT: Atraumatic, neck supple, moist mucous membranes Cardiovascular: Normal rate, normal rhythm. No murmurs appreciated. Pulmonary: Clear to auscultation b/l, no wheezing GI: Soft, nontender, nondistended MSK: R. hip tender to palpation, restricted ROM due to pain. Overlying bandage clean and dry. Skin: Warm and dry Neuro: CN grossly intact. No focal deficits. Strengths equal b/l. Psych: oriented x 3 LABORATORY DATA, IMAGING STUDIES, MICROBIOLOGY: Please see below. ASSESSMENT AND PLAN: 1. R. hip pain s/p R. total hip arthroplasty - Performed 12/05/[address] Inman. - Pain management. - Monitor wound/wound care. 2. hx CM w/ pacemaker - history of CM EF15% with pacemaker but had since improved now EF normal. - c/w home dose diuresis. - No evidence of fluid overload. - On low dose BB and ACEI. Had to reduced coreg from 25 mg -> 12.5 mg -> 6.25 mg BID. May need further reduction as she appear to run low with one episode/day into the 80-90s systolic briefly. Hold for SBP <110 for now. Has been held intermittently. 3. DM - Accuchecks, ISS. - resume home dose Levemir 35 units QHS, used to take 50 units. - Titrate as needed while inpatient. 4. Fibromyalgia/Spinal stenosis. - Resume home medications. 5. Asthma - Not in exacerbation. - Nebs PRN. monitor oxygen saturation. 6. GERD - Resume home meds. DVT ppx: Xarelto VS, I&O, 24H, Fishbone Vital Signs/I&O Vital Signs Date Time Temp Pulse Resp B/P (MAP) Pulse Ox O2 Delivery O2 Flow Rate FiO2 12/09/18 14:30 98.2 104 18 124/70 (88) 96 5/26/19 00:56 Room Air 12/05/18 12:25 2 I&O- Last 24 Hours up to 6 AM 12/09/18 06:00 Intake Total 1890 ml Balance 1890 ml Laboratory Data 24H LABS Laboratory Tests 2 12/08/18 17:01: Bedside Glucose (Misc Panel) 174H 12/08/18 19:49: Bedside Glucose (Misc Panel) 174H 12/09/18 05:22: Nucleated Red Blood Cells % (auto) 0.0, Anion Gap 9, Glomerular Filtration Rate > 60.0, Blood Urea Nitrogen 18, Creatinine 0.93, Sodium Level 136, Potassium Level 3.4L, Chloride Level 100, Carbon Dioxide Level 27, Calcium Level 8.7L 12/09/18 11:36: Bedside Glucose (Misc Panel) 188H CBC/BMP Laboratory Tests 12/09/18 05:22 Red Blood Count 3.24 L, Mean Corpuscular Volume 88.0, Mean Corpuscular Hemoglobin 29.0, Mean Corpuscular Hemoglobin Concent 33.0, Red Cell Distribution Width 15.0 H, Calcium Level 8.7 L JM AMEZCUA MD December 09, 2018 15:37
[2018-12-09] MEDS: PREGABALIN 50 MG CAP (LYRICA) PO PRN ×2 (16:14→23:40)
[2018-12-09] MEDS: RIVAROXABAN 10 MG TAB (XARELTO) PO SCH (17:13)
[2018-12-09] MEDS: DULoxetine 30 MG CAP (CYMBALTA) PO SCH (21:27)
[2018-12-09] MEDS: ATORVASTATIN 20 MG TAB PO SCH (21:27)
[2018-12-09] MEDS: rOPINIRole 0.25 MG TAB(REQUIP) PO SCH (21:27)
[2018-12-09] MEDS: ENALAPRIL MALEATE 5 MG TAB PO SCH (21:28)
[2018-12-09] MEDS: CARVedilol 6.25 MG TAB PO SCH (21:28)
[2018-12-09] MEDS: LEVEMIR (INSULIN DETEMIR) 1 UNITS/0.01ML SC SCH (21:29)
[2018-12-09 22:00] VITALS: BP 165/81
[2018-12-10] MEDS: PERCOCET 5MG/325MG TAB PO PRN ×4 (03:57→21:08)
[2018-12-10] MEDS: CYCLOBENZAPRINE 10 MG TAB PO SCH ×3 (05:58→21:08)
[2018-12-10 06:00] VITALS: BP 101/64
[2018-12-10 07:01] LABS: HEMATOCRIT 27.9 % (36.0-47.0); HEMOGLOBIN 9.1 g/dl (12.0-15.5); MEAN CORPUSCULAR HEMOGLOBIN 27.9 pg (27.0-33.0); MEAN CORPUSCULAR HGB CONC 32.6 g/dl (32.0-36.5); MEAN CORPUSCULAR VOLUME 85.6 fl (80.0-96.0); PLATELET COUNT, AUTOMATED 284 10^3/uL (150-450); RED BLOOD COUNT 3.26 10^6/uL (4.00-5.40); WHITE BLOOD COUNT 9.4 10^3/uL (4.0-10.0)
[2018-12-10 07:13] LABS: BLOOD UREA NITROGEN 15 MG/DL (7-18); CALCIUM LEVEL 8.8 MG/DL (8.8-10.2); CARBON DIOXIDE LEVEL 26 MEQ/L (21-32); CHLORIDE LEVEL 99 MEQ/L (98-107); CREATININE FOR GFR 0.81 MG/DL (0.55-1.30); GLOMERULAR FILTRATION RATE > 60.0 (>45); GLUCOSE, FASTING 175 MG/DL (70-100); POTASSIUM SERUM 3.3 MEQ/L (3.5-5.1); SODIUM LEVEL 134 MEQ/L (136-145)
[2018-12-10] MEDS ORDERED: POTASSIUM CHLORIDE 10% LIQ 20 MEQ/15 ML UDC PO ONE (07:30)
[2018-12-10] MEDS: HumaLOG INSULIN (NovoLOG) PER UNIT SC SCH ×4 (08:37→20:50)
[2018-12-10] MEDS: CARVedilol 6.25 MG TAB PO SCH ×2 (08:38→21:08)
[2018-12-10] MEDS: SPIRONOLACTONE 25 MG TAB PO SCH (08:39)
[2018-12-10] MEDS: TORSEMIDE 10 MG TABLET PO SCH (08:39)
[2018-12-10] MEDS: ALLOPURINOL 300 MG TAB PO SCH (08:39)
[2018-12-10] MEDS: MOM 30ML SUSPENSION UDC PO SCH (08:40)
[2018-12-10] MEDS: ESOMEPRAZOLE 40 MG PO SCH (08:40)
[2018-12-10] MEDS: SENOKOT S TAB PO SCH ×2 (08:41→21:07)
[2018-12-10] MEDS: MIRALAX *UNIT DOSE* 17GM PACKET PO SCH (08:41)
[2018-12-10 14:00] VITALS: BP 118/69
--- NOTE | 2018-12-10 14:39 | IPNPDOC ---
Subjective Date Seen The patient was seen on 12/10/18. Subjective Chief Complaint/HPI Patient seen and examined at the bedside. No acute overnight events noted. Objective Physical Examination General Exam: Positive: Alert, Cooperative, No Acute Distress ENT Exam: Positive: Atraumatic, Mucous membr. moist/pink Neck Exam: Negative: JVD Chest Exam: Positive: Clear to auscultation, Normal air movement Heart Exam: Positive: Rate Normal, Normal S1, Normal S2 Abdomen Exam: Positive: Soft; Negative: Tenderness Extremity Exam: Positive: Other (Right Hip with limited ROM 2/2 recent surgical intervention) Psych Exam: Positive: Oriented x 3 Assessment /Plan Plan/VTE VTE Prophylaxis Ordered?: Yes Plan R. hip pain s/p R. total hip arthroplasty Performed 12/05/[address] Inman. AC, post-operative surgical mgmt as per Ortho Hx of CHF with Cardiomyopathy s/p pacemaker history of CM EF15% with pacemaker but had since improved now EF normal. Cont current regimen of Torsemide, Aldactone, Coreg DM Cont home regimen Fibromyalgia/Spinal stenosis. Resume home medications. Asthma Nebs PRN. monitor oxygen saturation. DVT ppx Xarelto as per Ortho VS, I&O, 24H, José Vital Signs/I&O Vital Signs Date Time Temp Pulse Resp B/P (MAP) Pulse Ox O2 Delivery O2 Flow Rate FiO2 12/10/18 14:00 98.9 106 20 118/69 (85) 96 12/07/18 00:56 Room Air 12/05/18 12:25 2 I&O- Last 24 Hours up to 6 AM 12/10/18 06:00 Intake Total 2640 ml Balance 2640 ml Laboratory Data 24H LABS Laboratory Tests 2 12/09/18 16:36: Bedside Glucose (Misc Panel) 206H 12/09/18 19:43: Bedside Glucose (Misc Panel) 186H 12/10/18 06:24: Nucleated Red Blood Cells % (auto) 0.0, Anion Gap 9, Glomerular Filtration Rate > 60.0, Blood Urea Nitrogen 15, Creatinine 0.81, Sodium Level 134L, Potassium Level 3.3L, Chloride Level 99, Carbon Dioxide Level 26, Calcium Level 8.8 12/10/18 11:34: Bedside Glucose (Misc Panel) 238H CBC/BMP Laboratory Tests 12/10/18 06:24 Red Blood Count 3.26 L, Mean Corpuscular Volume 85.6, Mean Corpuscular Hemoglobin 27.9, Mean Corpuscular Hemoglobin Concent 32.6, Red Cell Distribution Width 14.9 H, Calcium Level 8.8 MONIE POON MD December 10, 2018 14:39
[2018-12-10] MEDS: RIVAROXABAN 10 MG TAB (XARELTO) PO SCH (17:04)
[2018-12-10] MEDS: ENALAPRIL MALEATE 5 MG TAB PO SCH (21:07)
[2018-12-10] MEDS: DULoxetine 30 MG CAP (CYMBALTA) PO SCH (21:07)
[2018-12-10] MEDS: LEVEMIR (INSULIN DETEMIR) 1 UNITS/0.01ML SC SCH (21:07)
[2018-12-10] MEDS: ATORVASTATIN 20 MG TAB PO SCH (21:07)
[2018-12-10] MEDS: rOPINIRole 0.25 MG TAB(REQUIP) PO SCH (21:08)
[2018-12-10] MEDS: PREGABALIN 50 MG CAP (LYRICA) PO PRN (21:08)
[2018-12-10 22:00] VITALS: BP 130/84
[2018-12-11] MEDS: PERCOCET 5MG/325MG TAB PO PRN ×4 (02:38→20:18)
[2018-12-11] MEDS: CYCLOBENZAPRINE 10 MG TAB PO SCH ×3 (05:35→21:40)
[2018-12-11 06:00] VITALS: BP 138/78
[2018-12-11 06:30] LABS: BLOOD UREA NITROGEN 10 MG/DL (7-18); CALCIUM LEVEL 8.8 MG/DL (8.8-10.2); CARBON DIOXIDE LEVEL 27 MEQ/L (21-32); CHLORIDE LEVEL 99 MEQ/L (98-107); CREATININE FOR GFR 0.75 MG/DL (0.55-1.30); GLOMERULAR FILTRATION RATE > 60.0 (>45); GLUCOSE, FASTING 197 MG/DL (70-100); POTASSIUM SERUM 3.3 MEQ/L (3.5-5.1); SODIUM LEVEL 133 MEQ/L (136-145)
[2018-12-11] MEDS ORDERED: POTASSIUM CHLORIDE 10% LIQ 20 MEQ/15 ML UDC PO ONE (08:15)
[2018-12-11 08:27] LABS: MAGNESIUM LEVEL 1.3 MG/DL (1.8-2.4)
[2018-12-11] MEDS: ESOMEPRAZOLE 40 MG PO SCH (08:43)
[2018-12-11] MEDS: ALLOPURINOL 300 MG TAB PO SCH (08:44)
[2018-12-11] MEDS: SPIRONOLACTONE 25 MG TAB PO SCH (08:44)
[2018-12-11] MEDS: CARVedilol 6.25 MG TAB PO SCH ×2 (08:44→20:16)
[2018-12-11] MEDS: HumaLOG INSULIN (NovoLOG) PER UNIT SC SCH ×4 (08:45→20:17)
[2018-12-11] MEDS: MOM 30ML SUSPENSION UDC PO SCH (08:45)
[2018-12-11] MEDS: TORSEMIDE 10 MG TABLET PO SCH (08:45)
[2018-12-11] MEDS: SENOKOT S TAB PO SCH ×2 (08:46→20:16)
[2018-12-11] MEDS: MIRALAX *UNIT DOSE* 17GM PACKET PO SCH (08:46)
--- NOTE | 2018-12-11 14:16 | IPNPDOC ---
Subjective Date Seen The patient was seen on 12/11/18. Subjective Chief Complaint/HPI Patient seen and examined at the bedside. No acute overnight events noted. Objective Physical Examination General Exam: Positive: Alert, Cooperative, No Acute Distress ENT Exam: Positive: Atraumatic, Mucous membr. moist/pink Neck Exam: Negative: JVD Chest Exam: Positive: Clear to auscultation, Normal air movement Heart Exam: Positive: Rate Normal, Normal S1, Normal S2 Abdomen Exam: Positive: Soft; Negative: Tenderness Extremity Exam: Positive: Other (Right Hip with limited ROM 2/2 recent surgical intervention) Psych Exam: Positive: Oriented x 3 Assessment /Plan Plan/VTE VTE Prophylaxis Ordered?: Yes Plan R. hip pain s/p R. total hip arthroplasty Performed 12/05/[address] Inman. AC, post-operative surgical mgmt as per Ortho Hx of CHF with Cardiomyopathy s/p pacemaker history of CM EF15% with pacemaker but had since improved now EF normal. Cont current regimen of Torsemide, Aldactone, Coreg Hypomagnesemia Repleted We will recheck a level in the morning DM Cont home regimen Fibromyalgia/Spinal stenosis. Resume home medications. Asthma Nebs PRN. monitor oxygen saturation. DVT ppx Xarelto as per Ortho VS, I&O, 24H, José Vital Signs/I&O Vital Signs Date Time Temp Pulse Resp B/P (MAP) Pulse Ox O2 Delivery O2 Flow Rate FiO2 12/11/18 09:14 18 12/11/18 08:44 94 138/78 12/11/18 06:00 98.2 99 12/07/18 00:56 Room Air 12/05/18 12:25 2 I&O- Last 24 Hours up to 6 AM 12/11/18 06:00 Intake Total 3420 ml Balance 3420 ml Laboratory Data 24H LABS Laboratory Tests 2 12/10/18 16:51: Bedside Glucose (Misc Panel) 180H 12/10/18 19:55: Bedside Glucose (Misc Panel) 220H 12/10/18 23:27: Bedside Glucose (Misc Panel) 229H 12/11/18 05:21: Anion Gap 7L, Glomerular Filtration Rate > 60.0, Blood Urea Nitrogen 10, Creatinine 0.75, Sodium Level 133L, Potassium Level 3.3L, Chloride Level 99, Carbon Dioxide Level 27, Calcium Level 8.8, Magnesium Level 1.3L 12/11/18 11:27: Bedside Glucose (Misc Panel) 242H CBC/BMP Laboratory Tests 12/11/18 05:21 Calcium Level 8.8 MONIE POON MD December 11, 2018 14:16
[2018-12-11 14:48] VITALS: BP 114/58
[2018-12-11] MEDS: MAG SULF 1GM/100ML (MAG RUN) 1 GM in APPROPRIATE DILUENT 1 EA IV SCH ×3 (15:51→18:30)
[2018-12-11] MEDS: RIVAROXABAN 10 MG TAB (XARELTO) PO SCH (17:25)
[2018-12-11] MEDS: rOPINIRole 0.25 MG TAB(REQUIP) PO SCH (20:15)
[2018-12-11] MEDS: DULoxetine 30 MG CAP (CYMBALTA) PO SCH (20:15)
[2018-12-11] MEDS: ATORVASTATIN 20 MG TAB PO SCH (20:16)
[2018-12-11] MEDS: LEVEMIR (INSULIN DETEMIR) 1 UNITS/0.01ML SC SCH (20:17)
[2018-12-11] MEDS: ENALAPRIL MALEATE 5 MG TAB PO SCH (20:17)
[2018-12-11 22:00] VITALS: BP 120/85
[2018-12-12] MEDS: PERCOCET 5MG/325MG TAB PO PRN ×2 (01:16→09:32)
[2018-12-12] MEDS: PREGABALIN 50 MG CAP (LYRICA) PO PRN ×2 (02:50→10:56)
[2018-12-12] MEDS: CYCLOBENZAPRINE 10 MG TAB PO SCH (05:56)
[2018-12-12 06:00] VITALS: BP 112/63
[2018-12-12 06:28] LABS: ALBUMIN 1.9 GM/DL (3.2-5.2); ALT/SGPT 17 U/L (12-78); BILIRUBIN,TOTAL 0.3 MG/DL (0.2-1.0); BLOOD UREA NITROGEN 11 MG/DL (7-18); CALCIUM LEVEL 8.2 MG/DL (8.8-10.2); CARBON DIOXIDE LEVEL 27 MEQ/L (21-32); CHLORIDE LEVEL 101 MEQ/L (98-107); CREATININE FOR GFR 0.72 MG/DL (0.55-1.30); GLOMERULAR FILTRATION RATE > 60.0 (>45); GLUCOSE, FASTING 192 MG/DL (70-100); POTASSIUM SERUM 3.6 MEQ/L (3.5-5.1); SODIUM LEVEL 133 MEQ/L (136-145); TOTAL PROTEIN 6.1 GM/DL (6.4-8.2)
[2018-12-12] MEDS: HumaLOG INSULIN (NovoLOG) PER UNIT SC SCH (08:08)
[2018-12-12 08:10] VITALS: BP 112/63
[2018-12-12] MEDS: ALLOPURINOL 300 MG TAB PO SCH (08:10)
[2018-12-12] MEDS: CARVedilol 6.25 MG TAB PO SCH (08:10)
[2018-12-12] MEDS: TORSEMIDE 10 MG TABLET PO SCH (08:10)
[2018-12-12] MEDS: SPIRONOLACTONE 25 MG TAB PO SCH (08:11)
[2018-12-12] MEDS: SENOKOT S TAB PO SCH (08:11)
[2018-12-12] MEDS: MIRALAX *UNIT DOSE* 17GM PACKET PO SCH (09:00)
[2018-12-12] MEDS: MOM 30ML SUSPENSION UDC PO SCH (09:00)
[2018-12-12] MEDS: ESOMEPRAZOLE 40 MG PO SCH (09:00)
--- NOTE | 2018-12-12 10:48 | IPNPDOC ---
Subjective Date Seen The patient was seen on 12/12/18. Subjective Chief Complaint/HPI Patient seen and examined at the bedside. No acute overnight events noted. She is scheduled to be transferred to rehabilitation today. Objective Physical Examination General Exam: Positive: Alert, Cooperative, No Acute Distress ENT Exam: Positive: Atraumatic, Mucous membr. moist/pink Neck Exam: Negative: JVD Chest Exam: Positive: Clear to auscultation, Normal air movement Heart Exam: Positive: Rate Normal, Normal S1, Normal S2 Abdomen Exam: Positive: Soft; Negative: Tenderness Extremity Exam: Positive: Other (Right Hip with limited ROM 2/2 recent surgical intervention) Psych Exam: Positive: Oriented x 3 Assessment /Plan Plan/VTE VTE Prophylaxis Ordered?: Yes Plan R. hip pain s/p R. total hip arthroplasty Performed 12/05/[address] Inman. AC, post-operative surgical mgmt as per Ortho Hx of CHF with Cardiomyopathy s/p pacemaker history of CM EF15% with pacemaker but had since improved now EF normal. Cont current regimen of Torsemide, Aldactone, Coreg Hypomagnesemia, resolved DM Cont home regimen Fibromyalgia/Spinal stenosis. Resume home medications. Asthma Nebs PRN. monitor oxygen saturation. DVT ppx Xarelto as per Ortho Dispo--patient scheduled to be D/C'd to Rehab this AM. VS, I&O, 24H, José Vital Signs/I&O Vital Signs Date Time Temp Pulse Resp B/P (MAP) Pulse Ox O2 Delivery O2 Flow Rate FiO2 12/12/18 10:05 16 12/12/18 08:10 92 112/63 12/12/18 06:00 95.3 94 12/07/18 00:56 Room Air I&O- Last 24 Hours up to 6 AM 12/12/18 05:59 Intake Total 1740 ml Output Total 0 ml Balance 1740 ml Laboratory Data 24H LABS Laboratory Tests 2 12/11/18 11:27: Bedside Glucose (Misc Panel) 242H 12/11/18 16:38: Bedside Glucose (Misc Panel) 181H 12/11/18 20:03: Bedside Glucose (Misc Panel) 216H 12/12/18 05:36: Anion Gap 5L, Glomerular Filtration Rate > 60.0, Blood Urea Nitrogen 11, Creatinine 0.72, Sodium Level 133L, Potassium Level 3.6, Chloride Level 101, Carbon Dioxide Level 27, Calcium Level 8.2L, Aspartate Amino Transf (AST/SGOT) 14, Alanine Aminotransferase (ALT/SGPT) 17, Alkaline Phosphatase 97, Total Bilirubin 0.3, Total Protein 6.1L, Albumin 1.9L, Magnesium Level 2.0, Albumin/Globulin Ratio 0.45L CBC/BMP Laboratory Tests 12/12/18 05:36 Calcium Level 8.2 L, Aspartate Amino Transf (AST/SGOT) 14, Alanine Aminotransferase (ALT/SGPT) 17, Alkaline Phosphatase 97, Total Bilirubin 0.3, Total Protein 6.1 L, Albumin 1.9 L MONIE POON MD December 12, 2018 10:48
== END 2018-12-12 11:01 | DRG 470 ==
LOC: M OR 07:00 → M MS5PR 13:23
PROVIDERS: ADMIT Orthopaedic Surgery; ATTEND Orthopaedic Surgery
PROC: 0SR90JZ Replacement of Right Hip Joint with Synthetic Substitute, Open Approach (ICD-10-PCS; principal; 2018-12-05 09:35)
DX: M16.11 Unilateral primary osteoarthritis, right hip (principal); I42.9 Cardiomyopathy, unspecified; E11.9 Type 2 diabetes mellitus without complications; J45.909 Unspecified asthma, uncomplicated; M79.7 Fibromyalgia; K21.9 Gastro-esophageal reflux disease without esophagitis; K44.9 Diaphragmatic hernia without obstruction or gangrene; G47.30 Sleep apnea, unspecified; K58.9 Irritable bowel syndrome, unspecified; E66.01 Morbid (severe) obesity due to excess calories; M10.9 Gout, unspecified; E83.42 Hypomagnesemia; Z68.37 Body mass index [BMI] 37.0-37.9, adult; Z90.49 Acquired absence of other specified parts of digestive tract; Z90.710 Acquired absence of both cervix and uterus; Z95.0 Presence of cardiac pacemaker; Z96.652 Presence of left artificial knee joint; Z98.49 Cataract extraction status, unspecified eye; Z79.82 Long term (current) use of aspirin; Z79.4 Long term (current) use of insulin; Z79.899 Other long term (current) drug therapy

== ENCOUNTER → 2019-02-10 | Outpatient (REF) | payer MEDICARE ==
[~2019-02-10] MED LIST changes: +ECOT81TA5 PO; -LIDOCAINE 1% MDV 20ML VIAL SQ PRN; -LR 1,000 ML IV ONE; +PERC5TAB12 PO; +XARE10TA PO
[2019-02-10 11:46] LABS: PLATELET COUNT, AUTOMATED 392 10^3/uL (150-450)
[2019-02-10 11:58] LABS: PARTIAL THROMBOPLASTIN TIME 30.7 SECONDS (25.0-38.4)
[2019-02-10 12:02] LABS: INR 1.06; PROTHROMBIN TIME 13.5 SECONDS (11.8-14.0)
[2019-02-10 12:09] LABS: ERYTHROCYTE SEDIMENTATION RATE 57 mm/hr (0-30)
== END ==
LOC: M LABDRAW1 11:13
PROVIDERS: ATTEND Physical Medicine & Rehabilitation
DX: Z01.818 Encounter for other preprocedural examination (principal); Z79.899 Other long term (current) drug therapy

== ENCOUNTER → 2019-12-11 | Outpatient (CLI) | payer MEDICARE ==
[~2019-12-11] MED LIST changes: +FISH OIL TRIPLE1 CA1 PO; -FISH1CAP23 PO; +FLUT15.820; -FLUT50SP21; -ROPI0.5T PO; +ROPI0.5T3 PO
== END ==
LOC: M LABSMTC 14:02
PROVIDERS: ATTEND Physical Medicine & Rehabilitation
DX: Z11.59 Encounter for screening for other viral diseases (principal)

== ENCOUNTER → 2020-02-22 | Outpatient (REF) | payer MEDICARE ==
[~2020-02-22] MED LIST changes: +ENAL5TA PO; -ENAL5TAB PO
[2020-04-05 12:50] LABS: CREATININE, URINE < 13.0 MG/DL; MALB URINE SIEMENS < 5.0 MG/L
== END ==
LOC: M LAB REF 08:24
PROVIDERS: ATTEND Nurse Practitioner Family
DX: E11.9 Type 2 diabetes mellitus without complications (principal)

== ENCOUNTER → 2020-04-06 | Outpatient (CLI) | payer MEDICARE | LOC: M LABSMTC 10:34 | PROVIDERS: ATTEND Physical Medicine & Rehabilitation | DX: Z20.828 Contact with and (suspected) exposure to other viral communicable diseases (principal) ==

== ENCOUNTER → 2020-11-18 | Outpatient (CLI) | payer MEDICARE ==
[~2020-11-18] MED LIST changes: -DICY20TA PO; +DICY20TA3 PO
== END ==
LOC: M LABSMTC 10:46
PROVIDERS: ATTEND Student in an Organized Health Care Education/Training Program
DX: Z01.812 Encounter for preprocedural laboratory examination (principal); Z20.822 Contact with and (suspected) exposure to COVID-19

== ENCOUNTER → 2023-11-07 | Outpatient (CLI) | payer MEDICARE ==
[~2023-11-07] MED LIST changes: -CYMB60CA3 PO; +CYMB60CA4 PO; +ENAL1TAB48 PO; -ENAL5TA PO; +GABA-284 PO; -GABA-845 PO; -KLOR20TA42 PO; +POTA-141 PO; -ROPI0.5T3 PO; +ROPI0.5T33 PO; +TIZA4CAP3 PO; -TIZA4CAP6 PO
== END ==
LOC: M PLAIMG 09:53
PROVIDERS: ATTEND Physician Assistant
DX: I34.0 Nonrheumatic mitral (valve) insufficiency (principal)

== ENCOUNTER 2024-11-02 10:24 | Emergency (ER) | payer MEDICARE ==
[~2024-11-02] VITALS: Ht 157.5 cm; Wt 77.1 kg
[~2024-11-02 10:24] MED LIST changes: +BUDE180A2 INH; -BUDE180INH INH; +ONDA-284 PO; -ONDA8TAB8 PO; -PREG25CA PO; +PREG25CA63 PO; -PREG50CA PO; +PREG50CA87 PO
[2024-11-02 14:16] VITALS: BP 123/60; TEMP 96.7; O2SAT 100
== END 2024-11-02 14:33 | disposition home or self-care (01) ==
LOC: M ED 10:24
DX: F41.9 Anxiety disorder, unspecified (principal); E11.9 Type 2 diabetes mellitus without complications; I10 Essential (primary) hypertension; Z88.2 Allergy status to sulfonamides; Z88.5 Allergy status to narcotic agent; Z88.8 Allergy status to other drugs, medicaments and biological substances; Z91.018 Allergy to other foods; Z91.048 Other nonmedicinal substance allergy status; Z79.1 Long term (current) use of non-steroidal anti-inflammatories (NSAID); Z79.4 Long term (current) use of insulin; Z79.51 Long term (current) use of inhaled steroids; Z79.899 Other long term (current) drug therapy